=== PATIENT | male | born 1970 | race Caucasian/White ===

== ENCOUNTER 2017-01-06 10:48 | Emergency (ER) | payer OTHER ==
--- NOTE | ~2017-01-06 | EKG ---
PATIENT: RUSSELL SIMMONS UNIT #: [id number] Ventricular Rate: 77 BPM Atrial Rate: 77 BPM P-R Interval: 160 ms QRS Duration: 82 ms Q-T Interval: 398 ms QTC Calculation(Bezet): 450 ms P Kol[place]: 43 degrees Calculated R Kol[place]: -6 degrees Calculated T Kol[place]: 4 degrees Diagnosis Line: Normal sinus rhythm Diagnosis Line: Moderate voltage criteria for LVH, may be normal Diagnosis Line: variant Diagnosis Line: Borderline ECG Diagnosis Line: When compared with ECG of 01-FEB-2014 19:25, Diagnosis Line: No significant change was found Diagnosis Line: Confirmed by JADEN ANGELO MD ([id number]) on Diagnosis Line: 01/06/2017 4:23:38 PM INTERPRETING MD: KRISTINE
--- NOTE | ~2017-01-06 | CT71 ---
[facility] A Service [facility] RADIOLOGY TEXT RESULTS PATIENT: RUSSELL SIMMONS LOCATION: [facility] : 66 UNIT #: [id number] AGE: [address]: Bobby Almeida MD SEX: M ORDER DR: [id number] [address] [address] [id number] MR#: [id number] Acc #: [id number] NAME: RUSSELL SIMMONS : 1970 SEX: M STUDY DATE/TIME: 01/06/2017 12:14 UNIT: [facility] ROOM: STUDY DESCRIPTION: CT Head Wo Contrast Attending Physician: Bobby Almeida M.D. Ordering Physician: Bobby Almeida M.D. Primary Care Physician: No Primary Care Physician MEDICAL IMAGING REPORT This report is preliminary unless electronic signature is present EXAM CT of the head without contrast. INDICATION Lightheadedness and numbness beginning today. Dizziness and blurry vision today. TECHNIQUE CT of the head was performed without contrast. This CT exam was performed with one or more of the following radiation dose reduction techniques: automatic exposure control, adjustment of mA and/or kV according to patient size, and iterative reconstruction. COMPARISON 02/01/2014 FINDINGS There is no intracranial hemorrhage. No acute cortical based infarction, focal mass lesion, or hydrocephalus. 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 This could be correlated with MRI or known history. The included orbits and paranasal sinuses are unremarkable. The bone windows are unremarkable. IMPRESSION 1. Stable exam without any acute abnormality. 2. 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 Correlate with any previous history or MR imaging. Dictated by... [facility] A Service [facility] RADIOLOGY TEXT RESULTS PATIENT: RUSSELL SIMMONS LOCATION: [facility] : 66 UNIT #: [id number] AGE: [address]: Bobby Almeida MD SEX: M ORDER DR: Checo R. Weiss, M.D. THIS IS AN ELECTRONICALLY VERIFIED REPORT Checo Weiss M.D. at 01/06/2017 6:11 PM SUBHA/sonali TD: 01/06/2017 14:33 JOB #: [id number] MEDICAL IMAGING REPORT Page 1 of 1 COPY
[~2017-01-06 10:48] MED LIST: ANTIVERT PO; FLEXERIL10 MG PO; FLONASE16 GM; IBUPROFEN PO; ORUDIS75 M1 PO; ZITHROMAX PO; ZOFRAN ODT4 MG DOB
[2017-01-06 11:44] LABS: BASOPHIL# 0.1 X10e3 (0-0.3); BASOPHIL% 0.8 % (0-2.5); EOSINOPHIL# 0.2 X10e3 (0-0.7); EOSINOPHIL% 2.8 % (0.0-7.0); HEMATOCRIT 41.8 % (38.0-50.0); LYMPHOCYTE# 1.9 X10e3 (1.0-3.5); MEAN CELL VOLUME 87.6 FL (83-96); MEAN CORPUSCULAR HEMOGLOBIN 29.5 PG (28-34); MEAN CORPUSCULAR HGB CONC 33.6 g/dL (30-36); MEAN PLATELET VOLUME 9.6 FL (6.5-11.5); MONOCYTE# 0.5 X10e3 (0-1.0); MONOCYTE% 7.9 % (3.0-12.0); NEUTROPHIL% 59.5 % (40-75); PLATELET COUNT 192 X10e3 (140-420); RED BLOOD COUNT 4.76 X10e (3.90-5.60); RED CELL DISTRIBUTION WIDTH 13.9 % (11.0-15.5); WHITE BLOOD COUNT 6.7 X10e3 (4.0-10.5)
[2017-01-06 11:50] LABS: DIFF IND NO
[2017-01-06 12:03] LABS: ALBUMIN SERUM 3.9 g/dL (3.5-5.0); ALKALINE PHOSPHATASE 93 U/L (32-92); ALT (SGPT) 27 U/L (10-40); AST (SGOT) 31 U/L (10-42); BILIRUBIN,TOTAL 0.9 mg/dL (0.2-2.0); BLOOD UREA NITROGEN 13 mg/dL (9-23); CALCIUM SERUM 8.7 mg/dL (8.4-10.2); CARBON DIOXIDE 24 mmol/L (22-31); CHLORIDE 109 mmol/L (100-111); GLOM FILT RATE Estimated 88.6 mL/min (>60); GLUCOSE FASTING 86 mg/dL (70-110); POTASSIUM 3.7 mmol/L (3.5-5.1); PROTEIN TOTAL SERUM 7.1 g/dL (6.0-8.3); SODIUM 140 mmol/L (135-145)
[2017-01-06 12:04] LABS: BILIRUBIN, DIRECT <0.1 mg/dL (0.0-0.2); BILIRUBIN,INDIRECT 0.8 mg/dL (0.0-0.9)
== END 2017-01-06 12:50 | disposition home or self-care (01) ==
LOC: CED 10:48
PROVIDERS: Emergency Medicine
DX: R42 Dizziness and giddiness (principal); R11.0 Nausea; Z88.5 Allergy status to narcotic agent; Z88.8 Allergy status to other drugs, medicaments and biological substances
CPT/HCPCS: 36415; 70450; 80048; 80076; 82947; 85025; 93005; 96361; 96374; 99284; J2405